=== PATIENT | male | born 1975 | race American Indian/Alaskan Native ===

== ENCOUNTER 2016-08-05 09:25 | Outpatient (CLI) | payer MEDICAID ==
--- NOTE | 2016-08-05 11:14 | Ultrasound Report ---
Complete abdominal ultrasound: Images of the liver demonstrate a slightly coarse pattern with a couple of small left lobe cysts. The body and head of the pancreas appear generally unremarkable. The spleen is not adequately visualized. The tail is not well-visualized. The gallbladder is echogenically unremarkable. The CBD diameter is 3.8 mm. The right renal length is 11 cm and the left renal length is 12.2 cm. Both kidneys appear echogenically unremarkable. The transverse diameter the mid abdominal aorta is approximately 14 mm. The proximal aorta is not visualized. Impression: Questionable steatosis or liver fibrosis.
== END 2016-08-05 09:26 | disposition home or self-care (01) ==
LOC: US 09:25
PROVIDERS: ATTEND Family Medicine
DX: D55.0 Anemia due to glucose-6-phosphate dehydrogenase [G6PD] deficiency (principal); K76.89 Other specified diseases of liver
CPT/HCPCS: 76700